=== PATIENT | female | born 1965 | race Hispanic/Latino ===

== ENCOUNTER 2023-11-11 16:21 | Inpatient (IN) | payer BC ==
[~2023-11-11] VITALS: Ht 167.6 cm; Wt 90.7 kg
[~2023-11-11 16:21] MED LIST: FIORICET 50-301 EACH PO
[2023-11-11] MEDS ORDERED: SODIUM CHLORIDE 0.9% 1000ML 1,000 ML IV STA (17:04)
[2023-11-11 17:31] LABS: BASOPHILS % 0.4 % (0.0-1.0); EOSINOPHILS % 0.4 % (0.0-6.0); HEMATOCRIT 43.7 % (34.2-44.1); HEMOGLOBIN 14.5 g/dL (12.0-16.0); LYMPHOCYTES # (AUTO) 1.7 (1.0-3.2); LYMPHOCYTES % 20.9 % (18.0-39.1); MEAN CORPUSCULAR HEMOGLOBIN 29.5 pg (28-32); MEAN CORPUSCULAR HGB CONC 33.2 g/dL (31-35); MEAN CORPUSCULAR VOLUME 88.8 fL (81-99); MONOCYTES # (AUTO) 0.6 (0.2-0.8); MONOCYTES % 6.9 % (4.4-11.3); NEUTROPHILS # (AUTO) 5.7 (2.1-6.9); NEUTROPHILS % 71.2 % (38.7-80.0); PLATELET COUNT 259 x10e3/uL (140-360); RED BLOOD COUNT 4.92 x10e6/uL (3.6-5.1); RED CELL DISTRIBUTION WIDTH 13.3 % (11.7-14.4); WHITE BLOOD COUNT 8.07 x10e3/uL (4.8-10.8)
[2023-11-11 17:37] LABS: INR 0.87
[2023-11-11 17:38] LABS: PARTIAL THROMBOPLASTIN TIME 26.4 seconds (23.8-35.5)
[2023-11-11 17:40] LABS: AMPHETAMINES SCREEN,URINE NEGATIVE (NEGATIVE); BENZODIAZEPINES SCREEN,URINE NEGATIVE (NEGATIVE); CANNABINOIDS SCREEN,URINE NEGATIVE (NEGATIVE); CLARITY,URINE HAZY (CLEAR); COLOR,URINE YELLOW (YELLOW); METHADONE SCREEN, URINE NEGATIVE (NEGATIVE); OPIATES SCREEN,URINE NEGATIVE (NEGATIVE); PHENCYCLIDINE SCREEN,URINE NEGATIVE (NEGATIVE)
[2023-11-11 17:41] LABS: BILIRUBIN,URINE NEGATIVE (NEGATIVE); GLUCOSE, URINE 1+ (NEGATIVE); KETONES,URINE NEGATIVE (NEGATIVE); LEUKOCYTE ESTERASE ,URINE NEGATIVE (NEGATIVE); NITRITE,URINE POSITIVE (NEGATIVE); PH,URINE 5.5 (5 - 7); PROTEIN,URINE DIPSTICK NEGATIVE (NEGATIVE); URINE UROBILINOGEN 0.2 mg/dL (0.2 - 1)
[2023-11-11 17:46] LABS: ALBUMIN 3.7 g/dL (3.5-5.0); ALBUMIN/GLOBULIN RATIO 0.9 (0.8-2.0); ANION GAP 16.3 mmol/L (8-16); BILIRUBIN,TOTAL 0.2 mg/dL (0.2-1.2); CALCIUM 9.5 mg/dL (8.4-10.2); CREATININE, SERUM 0.73 mg/dL (0.57-1.11); TOTAL PROTEIN 7.8 g/dL (6.5-8.1)
[2023-11-11 17:48] LABS: ACETAMINOPHEN < 3.0 ug/mL (10-30); ETHANOL < 10.0 mg/dL (0.0-10.0); POTASSIUM 3.3 mmol/L (3.5-5.1); SALICYLATE < 5.0 mg/dL (0-30)
[2023-11-11 17:52] LABS: BACTERIA,URINE MANY /HPF; EPITHELIAL CELLS,URINE RARE /LPF; WBC,URINE (MAN) 0-5 /HPF (0-5)
[2023-11-11 17:55] LABS: B-TYPE NATRIURETIC PEPTIDE2 26.7 pg/mL (0-100)
[2023-11-11 18:06] LABS: THYROID STIMULATING HORMONE 1.998 uIU/mL (0.350-4.940); TROPONIN I 0.002 ng/mL (0-0.300)
[2023-11-11] MEDS: SODIUM CHLORIDE 0.9% 1000ML 1,000 ML IV SCH (19:14)
[2023-11-11] MEDS ORDERED: ASPIRIN 81 MG CHEW TAB PO ONE (19:30)
[2023-11-11] MEDS ORDERED: METOPROLOL TARTRATE 25 MG TAB PO ONE (19:30)
[2023-11-11] MEDS ORDERED: HYDRALAZINE HCL 20 MG/ML VIAL IV PRN (19:30)
[2023-11-11 21:09] VITALS: BP 168/98; PULSE 85; RESP 18; TEMP 98.5; O2SAT 99
[2023-11-11] MEDS ORDERED: ONDANSETRON HCL INJ 2MG/ML 2ML 2 MG/ML VIAL IV PRN (21:15)
[2023-11-11] MEDS ORDERED: POLYETHYLENE GLYCOL 3350 17 GM PACK PO PRN (21:15)
[2023-11-11] MEDS ORDERED: ACETAMINOPHEN 325 MG TAB PO PRN (21:15)
[2023-11-11 22:02] VITALS: BP 166/98; PULSE 85; RESP 16; TEMP 97.9; O2SAT 100
[2023-11-11 22:11] VITALS: BP 166/98; PULSE 85; RESP 16; TEMP 97.9; O2SAT 100
[2023-11-11 23:40] VITALS: BP 146/99; PULSE 78; RESP 18; TEMP 98.6; O2SAT 99
[2023-11-12] VITALS (9 sets, daily range): BP systolic 137–160; BP diastolic 83–95; PULSE 84–107; RESP 16–20; TEMP 98.3–99.6; O2SAT 95–99
[2023-11-12 05:48] LABS: BASOPHILS % 0.3 % (0.0-1.0); EOSINOPHILS # (AUTO) 0.1 (0.0-0.4); EOSINOPHILS % 0.6 % (0.0-6.0); HEMATOCRIT 42.5 % (34.2-44.1); LYMPHOCYTES # (AUTO) 1.5 (1.0-3.2); LYMPHOCYTES % 19.1 % (18.0-39.1); MEAN CORPUSCULAR HEMOGLOBIN 29.2 pg (28-32); MEAN CORPUSCULAR HGB CONC 32.9 g/dL (31-35); MEAN CORPUSCULAR VOLUME 88.5 fL (81-99); MONOCYTES # (AUTO) 0.4 (0.2-0.8); MONOCYTES % 5.5 % (4.4-11.3); NEUTROPHILS # (AUTO) 5.8 (2.1-6.9); NEUTROPHILS % 74.2 % (38.7-80.0); PLATELET COUNT 234 x10e3/uL (140-360); RED CELL DISTRIBUTION WIDTH 13.2 % (11.7-14.4)
[2023-11-12 06:15] LABS: ALBUMIN 3.4 g/dL (3.5-5.0); ANION GAP 13.7 mmol/L (8-16); BILIRUBIN,TOTAL 0.4 mg/dL (0.2-1.2); CALCIUM 9.1 mg/dL (8.4-10.2); CREATININE, SERUM 0.67 mg/dL (0.57-1.11); POTASSIUM 3.7 mmol/L (3.5-5.1); TOTAL PROTEIN 7.2 g/dL (6.5-8.1)
[2023-11-12 06:16] LABS: ALBUMIN/GLOBULIN RATIO 0.9 (0.8-2.0); CHOL/HDL RATIO 3.8 (3.0-3.6)
[2023-11-12 06:35] LABS: MAGNESIUM 1.8 MG/DL (1.3-2.1); PHOSPHORUS 2.6 MG/DL (2.3-4.7); TROPONIN I 0.011 ng/mL (0-0.300)
[2023-11-12] MEDS: SODIUM CHLORIDE 0.9% 1000ML 1,000 ML IV SCH ×2 (07:27→16:22)
[2023-11-12] MEDS: DOCUSATE SODIUM 100 MG CAP PO SCH ×2 (08:23→16:11)
[2023-11-12] MEDS: FAMOTIDINE 20 MG TAB PO SCH ×2 (08:23→16:11)
[2023-11-12] MEDS ORDERED: AMLODIPINE BESYLATE 5 MG TAB PO ONE (09:30)
[2023-11-12] MEDS: AMLODIPINE BESYLATE 5 MG TAB PO SCH (16:25)
[2023-11-12 16:41] LABS: TROPONIN I 0.029 ng/mL (0-0.300)
[2023-11-12] MEDS ORDERED: PROCHLORPERAZINE MALEATE TAB 10 MG TAB PO SCH (18:00)
[2023-11-13] VITALS (8 sets, daily range): BP systolic 136–149; BP diastolic 80–95; PULSE 83–102; RESP 16–19; TEMP 97.6–98.3; O2SAT 95–98
[2023-11-13] MEDS: SODIUM CHLORIDE 0.9% 1000ML 1,000 ML IV SCH ×2 (04:58→10:36)
[2023-11-13] MEDS: FAMOTIDINE 20 MG TAB PO SCH ×2 (10:32→17:26)
[2023-11-13] MEDS: AMLODIPINE BESYLATE 5 MG TAB PO SCH (10:32)
[2023-11-13] MEDS: DOCUSATE SODIUM 100 MG CAP PO SCH ×2 (10:32→17:26)
[2023-11-14] VITALS (9 sets, daily range): BP systolic 135–147; BP diastolic 92–95; PULSE 94–111; RESP 18–21; TEMP 98.2–99.1; O2SAT 94–99
[2023-11-14] MEDS: SODIUM CHLORIDE 0.9% 1000ML 1,000 ML IV SCH ×3 (06:00→17:32)
[2023-11-14] MEDS: FAMOTIDINE 20 MG TAB PO SCH ×2 (08:49→17:32)
[2023-11-14] MEDS: AMLODIPINE BESYLATE 5 MG TAB PO SCH (08:49)
[2023-11-14] MEDS: DOCUSATE SODIUM 100 MG CAP PO SCH ×2 (08:49→17:31)
[2023-11-14] MEDS ORDERED: ONDANSETRON HCL 4 MG ORAL DISINTEGRATING TAB PO PRN (14:00)
[2023-11-15] VITALS: BP 150/100; PULSE 70; RESP 18; TEMP 98.9; O2SAT 98
[2023-11-15] MEDS: SODIUM CHLORIDE 0.9% 1000ML 1,000 ML IV SCH ×2 (03:17→12:45)
[2023-11-15 04:00] VITALS: BP 149/87; PULSE 87; RESP 18; TEMP 98.1; O2SAT 99
[2023-11-15 08:26] VITALS: PULSE 83; RESP 18; O2SAT 97
[2023-11-15 09:00] VITALS: BP 131/89; PULSE 74; RESP 20; TEMP 98.2; O2SAT 95
[2023-11-15] MEDS ORDERED: TOPIRAMATE 25 MG TAB PO SCH (09:00)
[2023-11-15] MEDS: AMLODIPINE BESYLATE 5 MG TAB PO SCH (10:13)
[2023-11-15] MEDS: FAMOTIDINE 20 MG TAB PO SCH (10:14)
[2023-11-15] MEDS: DOCUSATE SODIUM 100 MG CAP PO SCH (10:14)
[2023-11-15 11:00] VITALS: BP 132/91; PULSE 105; RESP 20; TEMP 98.4; O2SAT 97
[2023-11-15 16:10] VITALS: BP 134/64; PULSE 61; RESP 18; TEMP 98.1; O2SAT 99
== END 2023-11-15 19:43 | disposition home or self-care (01) | DRG 689 ==
LOC: ER 16:51 → ERHOLD 18:36 → MED/SURG 21:07
PROVIDERS: ADMIT Internal Medicine; ATTEND Internal Medicine
DX: N39.0 Urinary tract infection, site not specified (principal); G93.41 Metabolic encephalopathy; Z16.12 Extended spectrum beta lactamase (ESBL) resistance; Z16.24 Resistance to multiple antibiotics; B96.20 Unspecified Escherichia coli [E. coli] as the cause of diseases classified elsewhere; G43.909 Migraine, unspecified, not intractable, without status migrainosus; I10 Essential (primary) hypertension; E78.5 Hyperlipidemia, unspecified; R73.03 Prediabetes; L98.499 Non-pressure chronic ulcer of skin of other sites with unspecified severity; R74.8 Abnormal levels of other serum enzymes; I44.7 Left bundle-branch block, unspecified; F41.9 Anxiety disorder, unspecified; R00.0 Tachycardia, unspecified; Z11.52 Encounter for screening for COVID-19
CPT/HCPCS: 36415; 70450; 70551; 71045; 80053; 80061; 80307; 80320; 80329; 81001; 82140; 82550; 82948; 83036; 83690; 83735; 83880; 84100; 84443; 84484; 85025; 85610; 85730; 87086; 87186; 87400; 93005; 93306; 94799; 95819; 99252; 99284; J0696; J2185; J7030; U0002

== ENCOUNTER 2024-03-23 05:03 | Observation (INO) | payer BC ==
[2024-03-23 06:40] LABS: BASOPHILS % 0.4 % (0.0-1.0); EOSINOPHILS % 0.8 % (0.0-6.0); HEMATOCRIT 40.9 % (34.2-44.1); HEMOGLOBIN 13.8 g/dL (12.0-16.0); LYMPHOCYTES # (AUTO) 1.5 (1.0-3.2); LYMPHOCYTES % 28.4 % (18.0-39.1); MEAN CORPUSCULAR HEMOGLOBIN 29.7 pg (28-32); MEAN CORPUSCULAR HGB CONC 33.7 g/dL (31-35); MEAN CORPUSCULAR VOLUME 88.1 fL (81-99); MONOCYTES # (AUTO) 0.3 (0.2-0.8); MONOCYTES % 6.7 % (4.4-11.3); NEUTROPHILS # (AUTO) 3.2 (2.1-6.9); NEUTROPHILS % 63.5 % (38.7-80.0); PLATELET COUNT 222 x10e3/uL (140-360); RED BLOOD COUNT 4.64 x10e6/uL (3.6-5.1)
[2024-03-23] MEDS: CEFAZOLIN SODIUM 2 GM ONE (06:47)
[2024-03-23] MEDS: GABAPENTIN 300 MG CAP ONE (06:47)
[2024-03-23] MEDS: DEXAMETHASONE SOD PHOS 10 MG/1 ML VIAL ONE (06:47)
[2024-03-23] MEDS: CELECOXIB 200 MG CAP ONE (06:47)
[2024-03-23] MEDS: LACTATED RINGER'S 1,000 ML ONE (06:47)
[2024-03-23] MEDS ORDERED: TRANEXAMIC ACID 20 ML ONE (06:53)
[2024-03-23] MEDS ORDERED: SODIUM CHLORIDE 0.9% 500ML 500 ML ONE (06:53)
[2024-03-23] MEDS ORDERED: Vancomycin IV 500 MG ONE (06:53)
[2024-03-23] MEDS ORDERED: ACETAMINOPHEN 1000 MG/100 ML 100 ML IV ONE (06:57)
[2024-03-23] MEDS ORDERED: NICARDIPINE HCL SOLN 10 ML ONE (07:20)
[2024-03-23] MEDS ORDERED: FAMOTIDINE 20 MG/2 ML VIAL IV ONE (07:20)
[2024-03-23] MEDS ORDERED: ROPIVACAINE 246.25 MG, EPINEPHRINE HCL 1:1000 1ML 0.5 MG, CLONIDINE HCL 0.08 MG, KETORO... INJ ONE (07:30)
[2024-03-23] MEDS ORDERED: FENTANYL CITRATE/PF 100MCG/2 ML INJ ONE ×2 (07:47→13:07)
[2024-03-23] MEDS ORDERED: MIDAZOLAM HCL 2 MG/2 ML VIAL ONE (07:48)
[2024-03-23 09:43] VITALS: TEMP 98.6
[2024-03-23] MEDS ORDERED: DIPHENHYDRAMINE HCL INJ 50 MG/ML VIAL IV PRN (09:45)
[2024-03-23] MEDS ORDERED: SODIUM CHLORIDE 0.9% 1000ML 1,000 ML IV SCH (09:45)
[2024-03-23] MEDS ORDERED: DOCUSATE SODIUM 100 MG CAP PO PRN (09:45)
[2024-03-23] MEDS ORDERED: ONDANSETRON HCL INJ 2MG/ML 2ML 2 MG/ML VIAL IV PRN (09:45)
[2024-03-23] MEDS ORDERED: HYDROCODONE/APAP 5MG-325MG TAB PO PRN (09:45)
[2024-03-23] MEDS ORDERED: HYDROCODONE/APAP 7.5MG-325MG 1 EA TAB PO PRN (09:45)
[2024-03-23] MEDS: HYDROCODONE/APAP 5MG-325MG TAB ONE (12:20)
[2024-03-23] MEDS ORDERED: ONDANSETRON HCL INJ 2MG/ML 2ML 2 MG/ML VIAL ONE (12:30)
[2024-03-23] MEDS ORDERED: SEVOFLURANE INHAL SOLN 250 ML PEN BTL ONE (12:30)
[2024-03-23] MEDS ORDERED: PROPOFOL IV EMULSION 10 MG/ML 20 ML VIAL ONE (12:30)
[2024-03-23] MEDS ORDERED: DEXAMETHASONE SOD PHOS INJ 4 MG/ML SDV ONE (12:30)
[2024-03-23] MEDS ORDERED: LIDOCAINE HCL 2% LOCAL INJ 5 ML SDV VIAL INJ ONE (12:30)
[2024-03-23] MEDS ORDERED: DEXAMETHASONE SOD PHOS 10 MG/1 ML VIAL ONE (12:55)
[2024-03-23] MEDS ORDERED: ROPIVACAINE 0.5% 5 MG/ML 30 ML SDV ONE (12:55)
[2024-03-23 13:00] VITALS: BP 114/74; PULSE 87; RESP 16; O2SAT 97
[2024-03-23] MEDS ORDERED: ASPIRIN 325 MG TAB PO SCH (17:00)
[2024-03-23] MEDS ORDERED: CELECOXIB 100 MG CAP PO SCH (17:00)
[2024-03-24] MEDS ORDERED: ACETAMINOPHEN 1000 MG/100 ML IV PRN (09:45)
== END 2024-03-23 13:17 | disposition home health service (06) ==
LOC: OR 05:03 → MERGE 07:30 → PACU V 10:30
PROVIDERS: ADMIT Specialist; ATTEND Specialist
DX: M17.11 Unilateral primary osteoarthritis, right knee (principal); M25.761 Osteophyte, right knee; I49.1 Atrial premature depolarization; Z68.34 Body mass index [BMI] 34.0-34.9, adult
CPT/HCPCS: 27447; 36415; 73560; 85025; 86850; 86900; 93005; 97116; 97161; 97530; C1713 ×2; C1776 ×4; G0378; J0131; J0171; J0690; J1100 ×2; J2001; J2250; J2405; J2704; J2795; J3010; J3370; J7040; J7121; J1885